=== PATIENT | male | born 1975 | race Caucasian/White ===

== ENCOUNTER 2021-10-10 23:45 | Day surgery (SDCO) | payer OTHER ==
[~2021-10-10] VITALS: Ht 188 cm; Wt 112.0 kg
[~2021-10-10 23:45] MED LIST: BACTRIM DS TAB1 EACH PO; CIPRO500 M1 PO; IBUPROFEN800 MG PO; MEDROL 4MG DOSEP4 MG PO; PERCOCET 5-3251 EACH PO; VENTOLIN HFA IN18 GM INH
[2021-10-11 00:46] LABS: LACTIC ACID 7.9 mmol/L (0.4-1.9)
[2021-10-11 00:48] LABS: EOSINOPHIL 0.2 % (0-5); HCT 44.4 % (42.0-52.0); HGB 14.9 g/dl (13.2-18.0); LYMPHOCYTE 10.6 % (15-48); MCH 31.7 pg (25.0-31.0); MCHC 33.6 g/dL (32.0-36.0); MCV 94.5 fL (78.0-100.0); MONOCYTE 11.8 % (0-12); MPV 9.9 fL (6.0-9.5); NEUTROPHIL 70.8 % (41-80); NRBC 0.1; PLT 372 K/uL (150-400); RDW 12.8 % (11.5-14.0); WBC 22.3 K/uL (4.0-10.5)
[2021-10-11 01:04] LABS: ALBUMIN 3.4 g/dL (3.4-5.0); ALKALINE PHOSHATASE 48 U/L (46-116); ALT 44 U/L (16-63); AST 40 U/L (15-37); BILIRUBIN - TOTAL 0.8 mg/dL (0.2-1.0); BUN 23 mg/dL (7-18); BUN/CREAT RATIO (CALC) 8.7 RATIO; CHLORIDE 103 mmol/L (98-107); CO2 (BICARBONATE) 14 mmol/L (21-32); CPK 342 U/L (39-308); CREATININE 2.65 mg/dL (0.67-1.17); GLOBULIN (CALCULATION) 3.5 g/dL; GLUCOSE 164 mg/dL (74-106); POTASSIUM 4.1 mmol/L (3.5-5.1); TOTAL PROTEIN 6.9 g/dL (6.4-8.2)
[2021-10-11 01:27] LABS: BILIRUBIN 1+ mg/dL (NEGATIVE); BLOOD 2+ Ery/uL (NEGATIVE); CLARITY CLEAR (CLEAR); COLOR YELLOW (YELLOW); GLUCOSE (U) NORMAL (NORMAL); LEUKOCYTES NEGATIVE Leu/uL (NEGATIVE); NITRITE NEGATIVE (NEGATIVE); PROTEIN 2+ mg/dL (NEGATIVE); SPECIFIC GRAVITY >=1.030 (1.001-1.030); UROBILINOGEN 0.2 mg/dL (0.2-1.0); pH 5.5 (5.0-9.0)
[2021-10-11 01:34] LABS: BARBITURATES NEGATIVE (NEGATIVE); ECSTASY (MDMA) NEGATIVE (NEGATIVE); MARIJUANA (THC) NEGATIVE (NEGATIVE); METHADONE NEGATIVE (NEGATIVE); OPIATES NEGATIVE (NEGATIVE)
[2021-10-11 01:35] LABS: AMPHETAMINES NEGATIVE (NEGATIVE); OXYCODONE NEGATIVE (NEGATIVE)
[2021-10-11 01:45] LABS: INR 1.16 (0.9-1.2); PROTHROMBIN TIME 14.5 SECONDS (11.9-13.9); PTT 30.9 SECONDS (24.9-34.6)
[2021-10-11 01:59] LABS: MUCOUS TRACE
[2021-10-11 02:00] LABS: GRANULAR CASTS TRACE
[2021-10-11 02:15] LABS: CORONAVIRUS 2019 SARS-COV-2 NEGATIVE (NEGATIVE); INFLUENZA A NAA NEGATIVE (NEGATIVE)
[2021-10-11] MEDS ORDERED: GEODON40 MG PO (06:49)
[2021-10-11] MEDS ORDERED: GEODON60 MG PO (06:50)
[2021-10-11] MEDS ORDERED: SEROQUEL 25MG T25 MG PO (06:50)
[2021-10-11] MEDS ORDERED: REMERON15 MG PO (06:51)
[2021-10-11] MEDS ORDERED: GABAPENTIN300 MG PO (06:52)
[2021-10-11] MEDS ORDERED: OLANZAPINE ODT10 MG SL (06:52)
[2021-10-11] MEDS ORDERED: HYDROXYZINE HCL50 MG PO (06:53)
[2021-10-11] MEDS ORDERED: CERAVE ITCH RE237 ML TOP (06:54)
[2021-10-11 07:26] LABS: ALBUMIN 2.8 g/dL (3.4-5.0); BUN/CREAT RATIO (CALC) 11.7 RATIO; CREATININE 1.71 mg/dL (0.67-1.17); PHOSPHORUS 2.1 mg/dL (2.6-4.7); POTASSIUM 3.3 mmol/L (3.5-5.1)
[2021-10-12 11:34] LABS: BASOPHIL 0.8 % (0-2); EOSINOPHIL 0.8 % (0-5); HCT 37.2 % (42.0-52.0); HGB 12.5 g/dl (13.2-18.0); LYMPHOCYTE 16.7 % (15-48); MCH 32.5 pg (25.0-31.0); MCHC 33.6 g/dL (32.0-36.0); MCV 96.6 fL (78.0-100.0); MPV 9.3 fL (6.0-9.5); NEUTROPHIL 72.1 % (41-80); NRBC 0; PLT 173 K/uL (150-400); RBC 3.85 M/uL (4.70-6.00); RDW 13.6 % (11.5-14.0); WBC 11.9 K/uL (4.0-10.5)
[2021-10-12 12:08] LABS: BUN/CREAT RATIO (CALC) 14.1 RATIO; CREATININE 0.85 mg/dL (0.67-1.17); POTASSIUM 3.8 mmol/L (3.5-5.1)
[2021-10-12] MEDS ORDERED: PRISTIQ100 MG PO (13:48)
--- NOTE | 2021-10-12 15:24 | NUR ---
10/12/21 Mr. Guy and his GF share a home together with his 2 children and her 3 children. Mr. Guy recently gained employment. The family unit receives foodstamps. They are able to meet their basic financial obligations. - Mr. Guy reports to be treated at [facility] r/t anxiety and depression. He denies suicidal ideations, intentions, or attempts. - The UDS was positive for cocaine. Mr. Guy initially denied use. He reports to have recently used cocaine and has used frequently in the past. He was advised of NA meetings and recommendations were made for him to discuss the use with his counselor. Information was not left at bedside because Mr. Guy does not wish for his GF to be knowledgeable of the recent cocaine use.
== END 2021-10-12 14:52 | disposition home or self-care (01) ==
LOC: FER 23:45 → FTCU 10-11 04:44
PROVIDERS: Internal Medicine; Nurse Practitioner; ADMIT Internal Medicine
DX: R55 Syncope and collapse (principal); N17.9 Acute kidney failure, unspecified; M62.82 Rhabdomyolysis; I21.A1 Myocardial infarction type 2; F31.9 Bipolar disorder, unspecified; E87.6 Hypokalemia; F14.10 Cocaine abuse, uncomplicated; F41.9 Anxiety disorder, unspecified; Z20.822 Contact with and (suspected) exposure to COVID-19; Z79.899 Other long term (current) drug therapy; Z72.89 Other problems related to lifestyle; Z82.49 Family history of ischemic heart disease and other diseases of the circulatory system
CPT/HCPCS: 36415; 36600; 70450; 71045; 71250; 72125; 72128; 72131; 73030; 80048; 80053; 80069; 80305; 81001; 82550; 82803; 83605; 83735; 84484; 85025; 85610; 85730; 87040; 87088; 93005; 94010; 96361; 96365; 96375; G0378; G0480; J1650; J2060; J2543; J3010; J7030; U0002